=== PATIENT | female | born 1950 | race Caucasian/White ===

== ENCOUNTER 2019-03-21 12:16 | Day surgery (SDC) | payer MEDICARE, MEDICAID ==
[2019-03-21] VITALS (12 sets, daily range): BP systolic 150–187; BP diastolic 70–97
[~2019-03-21] VITALS: Ht 160 cm; Wt 71.9 kg
[~2019-03-21 12:16] MED LIST: ASPI-1265 PO; CALC500T63 PO; CHOL200035 PO; CYCL-394 PO; ESOM40CA PO; FENO135C3 PO; GABA-330 PO; HCTZ25T PO; HYDR28CR14 TP; LANTUS SQ; LIRA0.6P SQ; LISI-600 PO; METH-233 PO; MYL80T PO; OMEG1CAP PO; ROSU10TA2 PO; VITA400T8 PO; ZOF4T PO; [UNRECOGNIZED DRUG - OTHER] PO
[2019-03-21] MEDS ORDERED: diphenhydrAMINE 25mg capsule PO PRN (12:40)
[2019-03-21] MEDS ORDERED: normal saline 1,000 ML IV SCH (12:40)
[2019-03-21 13:29] LABS: BASOPHILS # (AUTO) 0.1 X10'3 (0-0.2); BASOPHILS % (AUTO) 0.8 % (0-1); EOSINOPHILS # (AUTO) 0.3 X10'3 (0-0.9); EOSINOPHILS % (AUTO) 3.8 % (0-6); HEMATOCRIT 28.7 % (35.0-45.0); HEMOGLOBIN 10.3 g/dl (12.0-16.0); LYMPHOCYTES # (AUTO) 2.2 X10'3 (1.1-4.8); LYMPHOCYTES % (AUTO) 27.3 % (21-51); MEAN CORPUSCULAR HEMOGLOBIN 33.7 PG (27.0-31.0); MEAN CORPUSCULAR HGB CONC 35.8 g/dL (33.0-36.5); MEAN CORPUSCULAR VOLUME 94.1 FL (78-98); MEAN PLATELET VOLUME 6.6 FL (7.4-10.4); MONOCYTES # (AUTO) 0.7 X10'3 (0-0.9); MONOCYTES % (AUTO) 8.9 % (2-12); NEUTROPHILS # (AUTO) 4.8 X10'3 (1.8-7.7); NEUTROPHILS % (AUTO) 59.2 % (42-75); PLATELET COUNT 328 X10'3 (140-440); RED BLOOD COUNT 3.05 X10'6 (4.20-5.60); RED CELL DISTRIBUTION WIDTH 13.9 % (11.5-14.5); WHITE BLOOD COUNT 8.1 X10'3 (4.5-11.0)
[2019-03-21 13:44] LABS: ALBUMIN 3.5 G/DL (3.4-5.0); ANION GAP 8 (8-16); BLOOD UREA NITROGEN 32 MG/DL (7-18); BUN/CREATININE RATIO 21.1 (6.6-38.0); CALCIUM 8.7 MG/DL (8.5-10.1); CHLORIDE 107 MMOL/L (99-107); CREATININE 1.52 MG/DL (0.40-0.90); GLUCOSE 85 MG/DL (70-104); MAGNESIUM 1.9 MG/DL (1.5-2.4); POTASSIUM 4.7 MMOL/L (3.5-5.1); SODIUM 139 MMOL/L (135-145); TOTAL CARBON DIOXIDE 23.9 MMOL/L (24-32); eGFR 34 ML/MIN
[2019-03-21] MEDS ORDERED: iohexol 350 MG/ML 50ML vial IV ONE (14:01)
[2019-03-21] MEDS ORDERED: LIDOcaine 1% (10mg/ml)w/preservative injection 20ml MDV ONE (14:01)
[2019-03-21] MEDS ORDERED: iohexol 350MG/ML 100ml bottle IV ONE (14:01)
[2019-03-21] MEDS ORDERED: fentaNYL/PF 50MCG/1 ML 2ML syringe ONE (14:18)
[2019-03-21] MEDS ORDERED: midazolam 2 mg/2 ml injection ONE ×2 (14:18→14:34)
[2019-03-21] MEDS ORDERED: proCHLORperazine 10 MG/2 ml inj ONE (14:18)
[2019-03-21] MEDS ORDERED: CYAN250014 (14:46)
[2019-03-21] MEDS ORDERED: FERR28TA PO (14:46)
[2019-03-21] MEDS ORDERED: OMEP20CA10 PO (14:46)
[2019-03-21] MEDS ORDERED: CHOL500049 PO (14:46)
[2019-03-21] MEDS ORDERED: Fiber Well PO (14:46)
[2019-03-21] MEDS ORDERED: HYDR40TA PO (14:46)
[2019-03-21] MEDS ORDERED: [UNRECOGNIZED DRUG - OTHER] PO (14:46)
[2019-03-21] MEDS ORDERED: DOCU-261 PO (14:46)
[2019-03-21] MEDS ORDERED: NITR0.4T48 SL (14:46)
[2019-03-21] MEDS ORDERED: DIPH-681 PO (14:46)
[2019-03-21] MEDS ORDERED: ZOL50T PO (14:46)
[2019-03-21] MEDS ORDERED: LACT1CAP65 PO (14:46)
[2019-03-21] MEDS ORDERED: VITE1000C PO (14:46)
[2019-03-21] MEDS ORDERED: DIPH-405 PO (14:46)
[2019-03-21] MEDS ORDERED: PSYL1PAC9 PO (14:46)
[2019-03-21] MEDS ORDERED: DICL100G15 TOP (14:46)
[2019-03-21] MEDS ORDERED: iohexol 350 MG/1 ML 200ml bottle ONE (14:50)
[2019-03-21] MEDS ORDERED: heparin 1,000unit/ml 10ml vial 10 ML ONE (14:50)
[2019-03-21] MEDS ORDERED: nitroGLYCERIN-Tridil 50MG/D5W 250 ML IV ONE (14:59)
[2019-03-21] MEDS ORDERED: ticagrelor 90mg tablet ONE (15:08)
== END 2019-03-21 19:30 | disposition home or self-care (01) ==
LOC: SSTAY O 12:16
PROVIDERS: ATTEND Internal Medicine Cardiovascular Disease
DX: I25.118 Atherosclerotic heart disease of native coronary artery with other forms of angina pectoris (principal); E11.51 Type 2 diabetes mellitus with diabetic peripheral angiopathy without gangrene; I10 Essential (primary) hypertension; E78.5 Hyperlipidemia, unspecified; K21.9 Gastro-esophageal reflux disease without esophagitis; E11.40 Type 2 diabetes mellitus with diabetic neuropathy, unspecified; F32.9 Major depressive disorder, single episode, unspecified; Z90.49 Acquired absence of other specified parts of digestive tract; Z90.710 Acquired absence of both cervix and uterus; Z86.73 Personal history of transient ischemic attack (TIA), and cerebral infarction without residual deficits; Z79.899 Other long term (current) drug therapy; Z79.82 Long term (current) use of aspirin; Z79.4 Long term (current) use of insulin; Z98.42 Cataract extraction status, left eye; Z98.41 Cataract extraction status, right eye; Z98.890 Other specified postprocedural states; Z80.9 Family history of malignant neoplasm, unspecified; Z87.891 Personal history of nicotine dependence
CPT/HCPCS: 36415; 80048; 83735; 85025; 85610; 93005; 93458; 99152; 99153; A6257; C1874; C9600; J0780; J1644; J2001; J2250; J3010; J7030; Q0163; Q9967; A4620; C1760; C1769; C1894; J3490

== ENCOUNTER 2019-06-16 13:42 | Emergency (ER) | payer MEDICARE, MEDICAID ==
[~2019-06-16] VITALS: Ht 157.5 cm; Wt 68.7 kg
[~2019-06-16 13:42] MED LIST changes: -CALC500T63 PO; -CHOL200035 PO; +CHOL500049 PO; +CYAN250014; -CYCL-394 PO; +DICL100G15 TOP; +DIPH-405 PO; +DIPH-681 PO; +DOCU-261 PO; -ESOM40CA PO; -FENO135C3 PO; +FERR28TA PO; +Fiber Well PO; -HCTZ25T PO; -HYDR28CR14 TP; +HYDR40TA PO; +LACT1CAP65 PO; -MYL80T PO; +NITR0.4T48 SL; -OMEG1CAP PO; +OMEP20CA11 PO; +PSYL1PAC9 PO; +VITE1000C PO; +ZOL50T PO; +[UNRECOGNIZED DRUG - OTHER] PO; -[UNRECOGNIZED DRUG - OTHER] PO
--- NOTE | 2019-06-16 13:54 | NUR ---
EKG 1348 SB
[2019-06-16 15:56] LABS: BASOPHILS # (AUTO) 0.1 X10'3 (0-0.2); EOSINOPHILS # (AUTO) 0.3 X10'3 (0-0.9); EOSINOPHILS % (AUTO) 3.9 % (0-6); HEMATOCRIT 31.4 % (35.0-45.0); HEMOGLOBIN 10.6 g/dl (12.0-16.0); LYMPHOCYTES # (AUTO) 1.3 X10'3 (1.1-4.8); LYMPHOCYTES % (AUTO) 18.4 % (21-51); MEAN CORPUSCULAR HEMOGLOBIN 32.2 PG (27.0-31.0); MEAN CORPUSCULAR HGB CONC 33.9 g/dL (33.0-36.5); MEAN CORPUSCULAR VOLUME 95.1 FL (78-98); MEAN PLATELET VOLUME 6.7 FL (7.4-10.4); MONOCYTES # (AUTO) 0.6 X10'3 (0-0.9); MONOCYTES % (AUTO) 8.6 % (2-12); NEUTROPHILS # (AUTO) 4.8 X10'3 (1.8-7.7); NEUTROPHILS % (AUTO) 68.1 % (42-75); PLATELET COUNT 324 X10'3 (140-440)
[2019-06-16 16:08] LABS: ALANINE AMINOTRANSFERASE 21 U/L (12-78); ALBUMIN 3.3 G/DL (3.4-5.0); ALBUMIN/GLOBULIN RATIO 0.9 (1.1-1.5); ALKALINE PHOSPHATASE 87 IU/L (46-116); ANION GAP 7 (8-16); BILIRUBIN,TOTAL 0.3 MG/DL (0.1-1.0); BLOOD UREA NITROGEN 34 MG/DL (7-18); BUN/CREATININE RATIO 22.1 (6.6-38.0); CALCIUM 8.7 MG/DL (8.5-10.1); CHLORIDE 103 MMOL/L (99-107); CREATININE 1.54 MG/DL (0.40-0.90); GLUCOSE 106 MG/DL (70-104); POTASSIUM 4.8 MMOL/L (3.5-5.1); SODIUM 135 MMOL/L (135-145); TOTAL CARBON DIOXIDE 24.7 MMOL/L (24-32); TOTAL PROTEIN 6.8 G/DL (6.4-8.2); eGFR 33 ML/MIN
[2019-06-16 16:22] LABS: ASPARTATE AMINO TRANSFERASE 18 U/L (10-37)
--- NOTE | 2019-06-16 17:05 | NUR ---
PT BP 180/78,168/[address] SHEA,NO NEW ORDERS HE SAID ITS EXPECTED .MD WAS AT BEDSID DOING ASSESSMENT , AT BEDSIDE.INFORMED THAT PT USED TO TAKE LISINOPRIL AND NOW ON LABETALOL PT SAID HER BP FLUCTUATE LIKE THIS.
--- NOTE | 2019-06-16 17:06 | NUR ---
dr carrasquillo in room.
[2019-06-16 17:11] LABS: PARTIAL THROMBOPLASTIN TIME 27 SECONDS (22-32)
[2019-06-16 18:31] VITALS: BP 180/84
== END 2019-06-16 19:43 | disposition home or self-care (01) ==
LOC: ER 13:43
DX: M54.2 Cervicalgia (principal); R42 Dizziness and giddiness; E11.9 Type 2 diabetes mellitus without complications; Z79.82 Long term (current) use of aspirin; Z79.01 Long term (current) use of anticoagulants; Z88.5 Allergy status to narcotic agent; Z79.4 Long term (current) use of insulin; Z79.899 Other long term (current) drug therapy
CPT/HCPCS: 36415; 71046; 80053; 84484; 85025; 85610; 85730; 93005; 99284

== ENCOUNTER 2024-03-24 07:36 | Day surgery (SDC) | payer MEDICARE, MEDICAID ==
[~2024-03-24] VITALS: Ht 157.5 cm; Wt 75.0 kg
[~2024-03-24 07:36] MED LIST changes: +ALBU8.5H17 INH; +AMLO5TAB16 PO; -ASPI-1265 PO; +ATOR40TA72 PO; +AZI25OT PO; +BUDE10.22 INH; +CLOP75TA34 PO; -CYAN250014; -DICL100G15 TOP; -DIPH-405 PO; -DIPH-681 PO; -DOCU-261 PO; +DOCU-337 PO; +DOXY25TA58 PO; -Fiber Well PO; -HYDR40TA PO; +LANS30CA56 PO; -LISI-600 PO; +MELA5TAB12 PO; -OMEP20CA11 PO; +ONDA-103 PO; +OXYC1TAB17 PO; -PSYL1PAC9 PO; -ROSU10TA2 PO; +UBIQ100C2 PO; +VALS160T2 PO; -VITA400T8 PO; -ZOF4T PO; -ZOL50T PO; -[UNRECOGNIZED DRUG - OTHER] PO
[2024-03-24 08:07] VITALS: BP 160/69; PULSE 75; RESP 15
[2024-03-24] MEDS ORDERED: ASPI-611 PO (08:10)
[2024-03-24] MEDS ORDERED: PANT40SU2 PO (08:10)
[2024-03-24] MEDS ORDERED: ESCI10TA PO (08:19)
[2024-03-24] MEDS ORDERED: DONE5TAB7 PO (08:20)
[2024-03-24] MEDS ORDERED: LISI20TA28 PO (08:21)
[2024-03-24] MEDS ORDERED: LABE100T8 PO (08:22)
[2024-03-24] MEDS ORDERED: VITD400T PO (08:23)
[2024-03-24] MEDS ORDERED: ASCO500C17 PO (08:24)
[2024-03-24 08:51] LABS: BASOPHILS # (AUTO) 0.1 X10'3 (0-0.2); BASOPHILS % (AUTO) 1.2 % (0-1); EOSINOPHILS # (AUTO) 0.2 X10'3 (0-0.9); EOSINOPHILS % (AUTO) 3.2 % (0-6); HEMATOCRIT 27.9 % (35.0-45.0); HEMOGLOBIN 9.1 g/dl (12.0-16.0); LYMPHOCYTES # (AUTO) 0.8 X10'3 (1.1-4.8); MEAN CORPUSCULAR HEMOGLOBIN 32.8 PG (27.0-31.0); MEAN CORPUSCULAR HGB CONC 32.7 g/dL (33.0-36.5); MEAN CORPUSCULAR VOLUME 100.3 FL (78-98); MEAN PLATELET VOLUME 6.3 FL (7.4-10.4); MONOCYTES # (AUTO) 0.8 X10'3 (0-0.9); MONOCYTES % (AUTO) 13.3 % (2-12); NEUTROPHILS # (AUTO) 4.1 X10'3 (1.8-7.7); NEUTROPHILS % (AUTO) 69.3 % (42-75); PLATELET COUNT 288 X10'3 (140-440); RED BLOOD COUNT 2.79 X10'6 (4.20-5.60); RED CELL DISTRIBUTION WIDTH 17.6 % (11.5-14.5); WHITE BLOOD COUNT 5.9 X10'3 (4.5-11.0)
[2024-03-24] MEDS ORDERED: diphenhydrAMINE 50 mg/ml inj ONE (09:08)
[2024-03-24] MEDS ORDERED: MIDAZolam 1 MG/ML 5ML VIAL ONE (09:08)
[2024-03-24] MEDS ORDERED: fentaNYL/PF 50MCG/1 ML 2ML syringe ONE (09:08)
[2024-03-24 10:12] VITALS: BP 142/64; PULSE 71; RESP 17; O2SAT 97
[2024-03-24 10:22] VITALS: BP 167/66; PULSE 69; RESP 12; O2SAT 100
[2024-03-24 10:32] VITALS: BP 168/75; PULSE 67; RESP 16; O2SAT 100
[2024-03-24 10:42] VITALS: BP 168/72; PULSE 68; RESP 14; O2SAT 100
== END 2024-03-24 10:53 | disposition home or self-care (01) ==
LOC: GI LAB 07:36
PROVIDERS: ATTEND Internal Medicine Gastroenterology
DX: D12.3 Benign neoplasm of transverse colon (principal); D12.2 Benign neoplasm of ascending colon; D50.0 Iron deficiency anemia secondary to blood loss (chronic); K57.30 Diverticulosis of large intestine without perforation or abscess without bleeding; K21.9 Gastro-esophageal reflux disease without esophagitis; I10 Essential (primary) hypertension; J44.9 Chronic obstructive pulmonary disease, unspecified
CPT/HCPCS: 36415; 45380; 45385; 85025; 99153; G0500; J2250; J3010; J7030; Z7512; 99152; A4620; C1889; J1200

== ENCOUNTER 2024-06-28 16:01 | Inpatient (IN) | payer MEDICARE, MEDICAID ==
[~2024-06-28] VITALS: Ht 157.5 cm; Wt 75.5 kg
[~2024-06-28 16:01] MED LIST changes: -AMLO5TAB16 PO; +ASCO500C17 PO; +ASPI-611 PO; -AZI25OT PO; -BUDE10.22 INH; -DOCU-337 PO; +DONE5TAB7 PO; -DOXY25TA58 PO; +ESCI10TA PO; -FERR28TA PO; -GABA-330 PO; +ISOS20TA15 PO; +LABE100T8 PO; -LACT1CAP65 PO; -LANS30CA56 PO; -LANTUS SQ; -LIRA0.6P SQ; +LISI20TA28 PO; -MELA5TAB12 PO; -METH-233 PO; -NITR0.4T48 SL; -ONDA-103 PO; -OXYC1TAB17 PO; +PANT40SU2 PO; +PATI16.8 PO; +PREG50CA PO; -UBIQ100C2 PO; -VALS160T2 PO; +VITD400T PO; -VITE1000C PO
[2024-06-28 17:57] LABS: BASOPHILS # (AUTO) 0.1 X10'3 (0-0.2); BASOPHILS % (AUTO) 0.6 % (0-1); EOSINOPHILS # (AUTO) 0.2 X10'3 (0-0.9); EOSINOPHILS % (AUTO) 2.3 % (0-6); HEMOGLOBIN 13.9 g/dl (12.0-16.0); LYMPHOCYTES # (AUTO) 0.9 X10'3 (1.1-4.8); LYMPHOCYTES % (AUTO) 9.5 % (21-51); MEAN CORPUSCULAR HEMOGLOBIN 31.9 PG (27.0-31.0); MEAN CORPUSCULAR HGB CONC 33.1 g/dL (33.0-36.5); MEAN CORPUSCULAR VOLUME 96.4 FL (78-98); MEAN PLATELET VOLUME 6.7 FL (7.4-10.4); MONOCYTES # (AUTO) 0.8 X10'3 (0-0.9); MONOCYTES % (AUTO) 8.4 % (2-12); NEUTROPHILS # (AUTO) 7.3 X10'3 (1.8-7.7); NEUTROPHILS % (AUTO) 79.2 % (42-75); PLATELET COUNT 299 X10'3 (140-440); RED BLOOD COUNT 4.35 X10'6 (4.20-5.60); RED CELL DISTRIBUTION WIDTH 16.5 % (11.5-14.5); WHITE BLOOD COUNT 9.2 X10'3 (4.5-11.0)
[2024-06-28 18:06] LABS: PROTHROMBIN TIME 10.9 SECONDS (9.0-12.0)
[2024-06-28 18:20] LABS: ALANINE AMINOTRANSFERASE 33 U/L (12-78); ALBUMIN 3.9 G/DL (3.4-5.0); ALBUMIN/GLOBULIN RATIO 1.1 (1.1-1.5); ALKALINE PHOSPHATASE 68 IU/L (46-116); ANION GAP 12 (8-16); ASPARTATE AMINO TRANSFERASE 18 U/L (10-37); BILIRUBIN,TOTAL 0.5 MG/DL (0.1-1.0); BLOOD UREA NITROGEN 31 MG/DL (7-18); BUN/CREATININE RATIO 5.3 (10.0-20.0); CALCIUM 9.1 MG/DL (8.5-10.1); CHLORIDE 93 MMOL/L (99-107); CREATININE 5.87 MG/DL (0.40-0.90); GLUCOSE 117 MG/DL (70-104); LIPASE 66 U/L (16-77); POTASSIUM 4.8 MMOL/L (3.5-5.1); SODIUM 132 MMOL/L (135-145); TOTAL CARBON DIOXIDE 26.8 MMOL/L (24-32); TOTAL PROTEIN 7.4 G/DL (6.4-8.2); eCRCL 7 ML/MIN; eGFR 7 ML/MIN
[2024-06-28] MEDS ORDERED: mag hydrox/Alum hydrox/simeth 30ml oral suspension PO PRN (21:05)
[2024-06-28] MEDS ORDERED: potassium Cl 20 mEq SR tablet PO PRN ×2 (21:05)
[2024-06-28] MEDS ORDERED: magnesium hydroxide 30ml (MOM) UD suspension PO PRN (21:05)
[2024-06-28] MEDS ORDERED: albuterol 2.5 MG/3 ML nebule NEB PRN (22:20)
[2024-06-29] VITALS (25 sets, daily range): BP systolic 84–158; BP diastolic 27–61; PULSE 77–98; RESP 16–21; TEMP 96.4–97.9; O2SAT 93–100
[2024-06-29 04:39] LABS: BASOPHILS # (AUTO) 0.1 X10'3 (0-0.2); BASOPHILS % (AUTO) 0.5 % (0-1); EOSINOPHILS # (AUTO) 0.2 X10'3 (0-0.9); EOSINOPHILS % (AUTO) 1.3 % (0-6); HEMATOCRIT 35.2 % (35.0-45.0); HEMOGLOBIN 11.3 g/dl (12.0-16.0); LYMPHOCYTES # (AUTO) 1.3 X10'3 (1.1-4.8); LYMPHOCYTES % (AUTO) 10.1 % (21-51); MEAN CORPUSCULAR HGB CONC 32.2 g/dL (33.0-36.5); MEAN CORPUSCULAR VOLUME 96.2 FL (78-98); MEAN PLATELET VOLUME 6.4 FL (7.4-10.4); MONOCYTES % (AUTO) 7.9 % (2-12); NEUTROPHILS # (AUTO) 9.9 X10'3 (1.8-7.7); NEUTROPHILS % (AUTO) 80.2 % (42-75); PLATELET COUNT 288 X10'3 (140-440); RED BLOOD COUNT 3.65 X10'6 (4.20-5.60); RED CELL DISTRIBUTION WIDTH 16.6 % (11.5-14.5); WHITE BLOOD COUNT 12.4 X10'3 (4.5-11.0)
[2024-06-29 04:42] LABS: ABG BASE EXCESS -8.1 mmol/L (-2.0-2.0); ABG HCO3 17.5 mmol/L (22.0-26.0); ABG OXYGEN SATURATION 94.2 % (94-97); ABG PCO2 (T) 35.9 mmHg (32.0-45.0); ABG PH (T) 7.305 (7.350-7.450); ALLEN'S TEST Modified; FCOHb 1.1 % (0.0-3.9); FHHb 5.7 % (0.0-5.0); FMetHb 0.3 % (0.0-1.5); FO2Hb 92.9 % (94-97); MODE ROOM AIR; PATIENT TEMPERATURE 36.6; TOTAL HEMOGLOBIN 12.1 G/dl (12.0-16.0)
[2024-06-29 04:52] LABS: APTT 25 SECONDS (22-32); PROTHROMBIN TIME 11.1 SECONDS (9.0-12.0)
[2024-06-29 04:56] LABS: ALANINE AMINOTRANSFERASE 27 U/L (12-78); ALBUMIN 3.3 G/DL (3.4-5.0); ALBUMIN/GLOBULIN RATIO 1.1 (1.1-1.5); ALKALINE PHOSPHATASE 55 IU/L (46-116); ANION GAP 14 (8-16); ASPARTATE AMINO TRANSFERASE 10 U/L (10-37); BILIRUBIN,TOTAL 0.3 MG/DL (0.1-1.0); BLOOD UREA NITROGEN 44 MG/DL (7-18); BUN/CREATININE RATIO 6.6 (10.0-20.0); CALCIUM 8.4 MG/DL (8.5-10.1); CHLORIDE 95 MMOL/L (99-107); GLUCOSE 150 MG/DL (70-104); MAGNESIUM 1.6 MG/DL (1.5-2.4); PHOSPHORUS 6.4 MG/DL (2.3-4.5); POTASSIUM 5.2 MMOL/L (3.5-5.1); SODIUM 132 MMOL/L (135-145); TOTAL CARBON DIOXIDE 23.2 MMOL/L (24-32); TOTAL PROTEIN 6.2 G/DL (6.4-8.2); eCRCL 6 ML/MIN; eGFR 6 ML/MIN
[2024-06-29 05:00] LABS: HEMOGLOBIN A1C 5.9 % (4.5-6.2)
[2024-06-29] MEDS: ondansetron/PF 4mg/2ml inj IV PRN (06:04)
[2024-06-29] MEDS: normal saline 250ml IV soln 250 ML IV ONE (06:38)
[2024-06-29] MEDS: desmopressin inj. 4 MCG in normal saline 100ml IV soln 100 ML IV STA (07:15)
[2024-06-29 07:42] LABS: HEMOGLOBIN 10.3 g/dl (12.0-16.0); MEAN CORPUSCULAR HEMOGLOBIN 31.4 PG (27.0-31.0); MEAN CORPUSCULAR HGB CONC 32.2 g/dL (33.0-36.5); MEAN CORPUSCULAR VOLUME 97.5 FL (78-98); MEAN PLATELET VOLUME 6.9 FL (7.4-10.4); PLATELET COUNT 248 X10'3 (140-440); RED BLOOD COUNT 3.28 X10'6 (4.20-5.60); RED CELL DISTRIBUTION WIDTH 16.7 % (11.5-14.5); WHITE BLOOD COUNT 10.7 X10'3 (4.5-11.0)
[2024-06-29] MEDS: lisinopril 10 MG tablet PO SCH (08:00)
[2024-06-29] MEDS: atorvastatin 20mg tablet PO SCH (08:00)
[2024-06-29] MEDS: clopidogrel 75mg tablet PO SCH (08:00)
[2024-06-29] MEDS: docusate sod 100mg capsule PO SCH (08:00)
[2024-06-29] MEDS ORDERED: dextrose 50%-water 50ml dispensing syringe IV PRN (08:05)
[2024-06-29] MEDS ORDERED: glucagon, human recombinant 1mg kit SUBCUT PRN (08:05)
[2024-06-29] MEDS ORDERED: DEXTROSE 15 GM of carb/4 tabs (each vial/BOTTLE has 4 tablets) PO PRN (08:05)
[2024-06-29] MEDS: dextrose 50%-water 50ml dispensing syringe IV PRN (08:16)
[2024-06-29] MEDS ORDERED: normal saline 1000ml 250 ML IV PRN (09:05)
[2024-06-29] MEDS ORDERED: normal saline 1000ml 100 ML IV PRN (09:05)
[2024-06-29] MEDS: acetaminophen 325mg tablet PO PRN (10:20)
[2024-06-29] MEDS: LIDOcaine 5% patch TP SCH (12:00)
[2024-06-29 13:30] LABS: HEMATOCRIT 29.8 % (35.0-45.0); HEMOGLOBIN 9.7 g/dl (12.0-16.0); MEAN CORPUSCULAR HEMOGLOBIN 31.4 PG (27.0-31.0); MEAN CORPUSCULAR HGB CONC 32.6 g/dL (33.0-36.5); MEAN CORPUSCULAR VOLUME 96.4 FL (78-98); MEAN PLATELET VOLUME 6.8 FL (7.4-10.4); PLATELET COUNT 237 X10'3 (140-440); RED BLOOD COUNT 3.09 X10'6 (4.20-5.60); RED CELL DISTRIBUTION WIDTH 16.4 % (11.5-14.5); WHITE BLOOD COUNT 8.4 X10'3 (4.5-11.0)
[2024-06-29] MEDS: HYDROcodone/acetaminophen 5mg/325mg tablet PO PRN (13:35)
[2024-06-29] MEDS: heparin 1,000 units/ml 10ml inj HE ONE ×2 (14:24)
[2024-06-29 16:07] LABS: HEMATOCRIT 28.2 % (35.0-45.0); HEMOGLOBIN 9.2 g/dl (12.0-16.0); MEAN CORPUSCULAR HEMOGLOBIN 31.3 PG (27.0-31.0); MEAN CORPUSCULAR HGB CONC 32.7 g/dL (33.0-36.5); MEAN CORPUSCULAR VOLUME 95.6 FL (78-98); MEAN PLATELET VOLUME 6.5 FL (7.4-10.4); PLATELET COUNT 214 X10'3 (140-440); RED BLOOD COUNT 2.95 X10'6 (4.20-5.60); RED CELL DISTRIBUTION WIDTH 16.7 % (11.5-14.5); WHITE BLOOD COUNT 7.6 X10'3 (4.5-11.0)
[2024-06-29] MEDS: ringers solution, lacted 1,000 ML IV SCH (16:36)
[2024-06-29] MEDS ORDERED: acetaminophen 325mg tablet PO PRN (21:10)
[2024-06-29 23:05] LABS: HEMATOCRIT 27.7 % (35.0-45.0); HEMOGLOBIN 8.9 g/dl (12.0-16.0); MEAN CORPUSCULAR HEMOGLOBIN 31.1 PG (27.0-31.0); MEAN CORPUSCULAR HGB CONC 32.4 g/dL (33.0-36.5); MEAN PLATELET VOLUME 6.6 FL (7.4-10.4); PLATELET COUNT 219 X10'3 (140-440); RED BLOOD COUNT 2.88 X10'6 (4.20-5.60); RED CELL DISTRIBUTION WIDTH 16.7 % (11.5-14.5); WHITE BLOOD COUNT 8.4 X10'3 (4.5-11.0)
[2024-06-30] VITALS (8 sets, daily range): BP systolic 119–149; BP diastolic 35–51; PULSE 64–95; RESP 16–19; TEMP 97–98.3; O2SAT 88–98
[2024-06-30 05:13] LABS: BASOPHILS # (AUTO) 0.1 X10'3 (0-0.2); BASOPHILS % (AUTO) 0.7 % (0-1); EOSINOPHILS # (AUTO) 0.2 X10'3 (0-0.9); EOSINOPHILS % (AUTO) 2.6 % (0-6); HEMOGLOBIN 8.5 g/dl (12.0-16.0); LYMPHOCYTES # (AUTO) 0.8 X10'3 (1.1-4.8); LYMPHOCYTES % (AUTO) 9.1 % (21-51); MEAN CORPUSCULAR HEMOGLOBIN 31.3 PG (27.0-31.0); MEAN CORPUSCULAR HGB CONC 32.7 g/dL (33.0-36.5); MEAN CORPUSCULAR VOLUME 95.7 FL (78-98); MONOCYTES # (AUTO) 0.9 X10'3 (0-0.9); MONOCYTES % (AUTO) 10.1 % (2-12); NEUTROPHILS # (AUTO) 6.7 X10'3 (1.8-7.7); NEUTROPHILS % (AUTO) 77.5 % (42-75); PLATELET COUNT 230 X10'3 (140-440); RED BLOOD COUNT 2.72 X10'6 (4.20-5.60); RED CELL DISTRIBUTION WIDTH 16.5 % (11.5-14.5); WHITE BLOOD COUNT 8.6 X10'3 (4.5-11.0)
[2024-06-30 05:26] LABS: ALANINE AMINOTRANSFERASE 24 U/L (12-78); ALKALINE PHOSPHATASE 52 IU/L (46-116); ANION GAP 8 (8-16); ASPARTATE AMINO TRANSFERASE 15 U/L (10-37); BILIRUBIN,TOTAL 0.3 MG/DL (0.1-1.0); BLOOD UREA NITROGEN 19 MG/DL (7-18); BUN/CREATININE RATIO 4.5 (10.0-20.0); CHLORIDE 100 MMOL/L (99-107); CREATININE 4.25 MG/DL (0.40-0.90); GLUCOSE 95 MG/DL (70-104); MAGNESIUM 1.4 MG/DL (1.5-2.4); PHOSPHORUS 4.6 MG/DL (2.3-4.5); POTASSIUM 4.1 MMOL/L (3.5-5.1); SODIUM 137 MMOL/L (135-145); TOTAL CARBON DIOXIDE 29.3 MMOL/L (24-32); TOTAL PROTEIN 6.1 G/DL (6.4-8.2); eCRCL 9 ML/MIN; eGFR 10 ML/MIN
[2024-06-30] MEDS: PERFLUTREN PROTEIN-A MICROSPHR (Optison) 0.22 MG/ML 3ML VIAL IV ONE (06:04)
[2024-06-30] MEDS: magnesium Cl slow-release 64mg tablet PO PRN (08:19)
[2024-06-30] MEDS: pregabalin 25mg capsule PO SCH (08:20)
[2024-06-30] MEDS: pantoprazole 40mg Tablet.DR PO SCH (08:29)
[2024-06-30] MEDS: ESCITALOPRAM 10 mg tablet 10 MG TABLET PO SCH (08:32)
[2024-06-30 10:02] LABS: HEMATOCRIT 25.7 % (35.0-45.0); HEMOGLOBIN 8.4 g/dl (12.0-16.0); MEAN CORPUSCULAR HEMOGLOBIN 31.5 PG (27.0-31.0); MEAN CORPUSCULAR HGB CONC 32.5 g/dL (33.0-36.5); MEAN CORPUSCULAR VOLUME 96.7 FL (78-98); MEAN PLATELET VOLUME 6.7 FL (7.4-10.4); PLATELET COUNT 211 X10'3 (140-440); RED BLOOD COUNT 2.66 X10'6 (4.20-5.60); RED CELL DISTRIBUTION WIDTH 16.8 % (11.5-14.5); WHITE BLOOD COUNT 9.8 X10'3 (4.5-11.0)
[2024-06-30] MEDS ORDERED: EPOETIN ALFA-EPBX 20,000 UNIT/ML 1 ML MDV IV SCH (16:30)
[2024-06-30] MEDS ORDERED: EPOETIN ALFA-EPBX 20,000 UNIT/ML 1 ML MDV IV ONE ×3 (16:30→16:55)
[2024-06-30] MEDS ORDERED: normal saline 1000ml 100 ML IV PRN (16:35)
[2024-06-30 17:02] LABS: HEMATOCRIT 25.3 % (35.0-45.0); HEMOGLOBIN 8.2 g/dl (12.0-16.0); MEAN CORPUSCULAR HEMOGLOBIN 31.2 PG (27.0-31.0); MEAN CORPUSCULAR HGB CONC 32.3 g/dL (33.0-36.5); MEAN CORPUSCULAR VOLUME 96.5 FL (78-98); MEAN PLATELET VOLUME 6.6 FL (7.4-10.4); PLATELET COUNT 218 X10'3 (140-440); RED BLOOD COUNT 2.62 X10'6 (4.20-5.60); RED CELL DISTRIBUTION WIDTH 16.4 % (11.5-14.5); WHITE BLOOD COUNT 10.2 X10'3 (4.5-11.0)
[2024-06-30] MEDS: EPOETIN ALFA-EPBX 20,000 UNIT/ML 1 ML MDV SQ ONE (22:57)
[2024-06-30] MEDS: donepezil 5mg tablet PO SCH (22:58)
[2024-06-30 23:01] LABS: HEMATOCRIT 26.6 % (35.0-45.0); HEMOGLOBIN 8.5 g/dl (12.0-16.0); MEAN CORPUSCULAR HGB CONC 31.9 g/dL (33.0-36.5); MEAN CORPUSCULAR VOLUME 97.3 FL (78-98); MEAN PLATELET VOLUME 6.9 FL (7.4-10.4); PLATELET COUNT 220 X10'3 (140-440); RED BLOOD COUNT 2.73 X10'6 (4.20-5.60); RED CELL DISTRIBUTION WIDTH 16.4 % (11.5-14.5); WHITE BLOOD COUNT 10.5 X10'3 (4.5-11.0)
[2024-07-01] VITALS (12 sets, daily range): BP systolic 115–181; BP diastolic 37–73; PULSE 74–93; RESP 14–26; TEMP 97.2–98.2; O2SAT 89–99
[2024-07-01] MEDS: DEXTROSE 15 GM of carb/4 tabs (each vial/BOTTLE has 4 tablets) PO PRN (01:59)
[2024-07-01] MEDS: dextrose 5%-water 1,000 ML IV SCH (02:04)
[2024-07-01 07:49] LABS: BASOPHILS % (AUTO) 0.4 % (0-1); EOSINOPHILS # (AUTO) 0.2 X10'3 (0-0.9); EOSINOPHILS % (AUTO) 2.9 % (0-6); HEMATOCRIT 25.6 % (35.0-45.0); HEMOGLOBIN 8.3 g/dl (12.0-16.0); LYMPHOCYTES # (AUTO) 0.7 X10'3 (1.1-4.8); LYMPHOCYTES % (AUTO) 8.9 % (21-51); MEAN CORPUSCULAR HEMOGLOBIN 31.5 PG (27.0-31.0); MEAN CORPUSCULAR HGB CONC 32.4 g/dL (33.0-36.5); MEAN CORPUSCULAR VOLUME 97.3 FL (78-98); MEAN PLATELET VOLUME 6.9 FL (7.4-10.4); MONOCYTES # (AUTO) 0.8 X10'3 (0-0.9); MONOCYTES % (AUTO) 10.5 % (2-12); NEUTROPHILS # (AUTO) 6.1 X10'3 (1.8-7.7); NEUTROPHILS % (AUTO) 77.3 % (42-75); PLATELET COUNT 228 X10'3 (140-440); RED BLOOD COUNT 2.63 X10'6 (4.20-5.60); RED CELL DISTRIBUTION WIDTH 16.6 % (11.5-14.5); WHITE BLOOD COUNT 7.9 X10'3 (4.5-11.0)
[2024-07-01] MEDS ORDERED: EPOETIN ALFA-EPBX 20,000 UNIT/ML 1 ML MDV IV ONE (08:00)
[2024-07-01 08:18] LABS: ALANINE AMINOTRANSFERASE 21 U/L (12-78); ALBUMIN 2.9 G/DL (3.4-5.0); ALBUMIN/GLOBULIN RATIO 0.9 (1.1-1.5); ALKALINE PHOSPHATASE 56 IU/L (46-116); ANION GAP 11 (8-16); ASPARTATE AMINO TRANSFERASE 13 U/L (10-37); BILIRUBIN,TOTAL 0.3 MG/DL (0.1-1.0); BLOOD UREA NITROGEN 29 MG/DL (7-18); BUN/CREATININE RATIO 4.9 (10.0-20.0); CALCIUM 8.1 MG/DL (8.5-10.1); CHLORIDE 97 MMOL/L (99-107); CREATININE 5.92 MG/DL (0.40-0.90); GLUCOSE 94 MG/DL (70-104); MAGNESIUM 1.7 MG/DL (1.5-2.4); PHOSPHORUS 6.1 MG/DL (2.3-4.5); POTASSIUM 4.1 MMOL/L (3.5-5.1); SODIUM 132 MMOL/L (135-145); TOTAL PROTEIN 6.1 G/DL (6.4-8.2); eCRCL 6 ML/MIN; eGFR 7 ML/MIN
[2024-07-01] MEDS: EPOETIN ALFA-EPBX 20,000 UNIT/ML 1 ML MDV IV ONE (08:50)
[2024-07-01] MEDS: proCHLORperazine 10 MG/2 ml inj IV PRN (15:04)
[2024-07-01 16:33] LABS: HEMATOCRIT 24.4 % (35.0-45.0); HEMOGLOBIN 7.9 g/dl (12.0-16.0); MEAN CORPUSCULAR HEMOGLOBIN 31.1 PG (27.0-31.0); MEAN CORPUSCULAR HGB CONC 32.3 g/dL (33.0-36.5); MEAN CORPUSCULAR VOLUME 96.3 FL (78-98); MEAN PLATELET VOLUME 6.7 FL (7.4-10.4); PLATELET COUNT 200 X10'3 (140-440); RED BLOOD COUNT 2.53 X10'6 (4.20-5.60); RED CELL DISTRIBUTION WIDTH 16.2 % (11.5-14.5); WHITE BLOOD COUNT 8.8 X10'3 (4.5-11.0)
[2024-07-01] MEDS: sodium ferric gluc complex inj 125 MG in normal saline 100ml IV soln 100 ML IV SCH (18:54)
[2024-07-02] VITALS (12 sets, daily range): BP systolic 113–162; BP diastolic 40–69; PULSE 72–102; RESP 12–19; TEMP 97–98.9; O2SAT 94–99
[2024-07-02 07:19] LABS: BASOPHILS % (AUTO) 0.5 % (0-1); EOSINOPHILS # (AUTO) 0.3 X10'3 (0-0.9); EOSINOPHILS % (AUTO) 4.6 % (0-6); HEMATOCRIT 24.1 % (35.0-45.0); HEMOGLOBIN 7.7 g/dl (12.0-16.0); LYMPHOCYTES # (AUTO) 0.8 X10'3 (1.1-4.8); LYMPHOCYTES % (AUTO) 10.8 % (21-51); MEAN CORPUSCULAR HEMOGLOBIN 30.7 PG (27.0-31.0); MEAN CORPUSCULAR HGB CONC 31.7 g/dL (33.0-36.5); MEAN CORPUSCULAR VOLUME 96.8 FL (78-98); MONOCYTES % (AUTO) 13.3 % (2-12); NEUTROPHILS # (AUTO) 5.1 X10'3 (1.8-7.7); NEUTROPHILS % (AUTO) 70.8 % (42-75); PLATELET COUNT 229 X10'3 (140-440); RED BLOOD COUNT 2.49 X10'6 (4.20-5.60); RED CELL DISTRIBUTION WIDTH 16.4 % (11.5-14.5); WHITE BLOOD COUNT 7.2 X10'3 (4.5-11.0)
[2024-07-02 07:21] LABS: ALANINE AMINOTRANSFERASE 20 U/L (12-78); ALBUMIN 2.7 G/DL (3.4-5.0); ALBUMIN/GLOBULIN RATIO 0.8 (1.1-1.5); ALKALINE PHOSPHATASE 56 IU/L (46-116); ANION GAP 8 (8-16); ASPARTATE AMINO TRANSFERASE 12 U/L (10-37); BILIRUBIN,TOTAL 0.2 MG/DL (0.1-1.0); BLOOD UREA NITROGEN 16 MG/DL (7-18); BUN/CREATININE RATIO 3.6 (10.0-20.0); CALCIUM 7.6 MG/DL (8.5-10.1); CHLORIDE 100 MMOL/L (99-107); CREATININE 4.43 MG/DL (0.40-0.90); GLUCOSE 106 MG/DL (70-104); MAGNESIUM 1.4 MG/DL (1.5-2.4); PHOSPHORUS 4.9 MG/DL (2.3-4.5); POTASSIUM 3.5 MMOL/L (3.5-5.1); SODIUM 135 MMOL/L (135-145); TOTAL CARBON DIOXIDE 27.4 MMOL/L (24-32); TOTAL PROTEIN 6.1 G/DL (6.4-8.2); eCRCL 9 ML/MIN; eGFR 10 ML/MIN
[2024-07-02 08:25] LABS: HBSAG SCREEN Negative (Negative)
[2024-07-02] MEDS: lactulose 20gm/30ml cup PO SCH (14:13)
[2024-07-02 19:48] LABS: HEMATOCRIT 28.2 % (35.0-45.0); HEMOGLOBIN 9.3 g/dl (12.0-16.0); MEAN CORPUSCULAR HGB CONC 32.8 g/dL (33.0-36.5); MEAN CORPUSCULAR VOLUME 94.7 FL (78-98); MEAN PLATELET VOLUME 6.9 FL (7.4-10.4); PLATELET COUNT 239 X10'3 (140-440); RED BLOOD COUNT 2.98 X10'6 (4.20-5.60); RED CELL DISTRIBUTION WIDTH 15.8 % (11.5-14.5); WHITE BLOOD COUNT 9.7 X10'3 (4.5-11.0)
[2024-07-03 02:00] VITALS: BP 134/52; PULSE 92; RESP 18; TEMP 99.7; O2SAT 90
[2024-07-03 07:00] VITALS: BP 151/55; PULSE 88; RESP 16; TEMP 98.4; O2SAT 92
[2024-07-03 07:17] LABS: BASOPHILS # (AUTO) 0.1 X10'3 (0-0.2); BASOPHILS % (AUTO) 1.1 % (0-1); EOSINOPHILS # (AUTO) 0.3 X10'3 (0-0.9); EOSINOPHILS % (AUTO) 3.4 % (0-6); HEMATOCRIT 28.3 % (35.0-45.0); HEMOGLOBIN 9.1 g/dl (12.0-16.0); LYMPHOCYTES # (AUTO) 0.9 X10'3 (1.1-4.8); LYMPHOCYTES % (AUTO) 11.6 % (21-51); MEAN CORPUSCULAR HEMOGLOBIN 31.4 PG (27.0-31.0); MEAN PLATELET VOLUME 7.2 FL (7.4-10.4); MONOCYTES % (AUTO) 12.4 % (2-12); NEUTROPHILS # (AUTO) 5.7 X10'3 (1.8-7.7); NEUTROPHILS % (AUTO) 71.5 % (42-75); PLATELET COUNT 229 X10'3 (140-440); RED BLOOD COUNT 2.89 X10'6 (4.20-5.60); RED CELL DISTRIBUTION WIDTH 16.1 % (11.5-14.5); WHITE BLOOD COUNT 7.9 X10'3 (4.5-11.0)
[2024-07-03 07:36] LABS: ALANINE AMINOTRANSFERASE 15 U/L (12-78); ALBUMIN 2.6 G/DL (3.4-5.0); ALBUMIN/GLOBULIN RATIO 0.7 (1.1-1.5); ALKALINE PHOSPHATASE 56 IU/L (46-116); ANION GAP 12 (8-16); ASPARTATE AMINO TRANSFERASE 12 U/L (10-37); BILIRUBIN,TOTAL 0.2 MG/DL (0.1-1.0); BLOOD UREA NITROGEN 28 MG/DL (7-18); BUN/CREATININE RATIO 4.6 (10.0-20.0); CALCIUM 7.6 MG/DL (8.5-10.1); CHLORIDE 100 MMOL/L (99-107); CREATININE 6.08 MG/DL (0.40-0.90); GLUCOSE 126 MG/DL (70-104); MAGNESIUM 1.5 MG/DL (1.5-2.4); PHOSPHORUS 5.3 MG/DL (2.3-4.5); POTASSIUM 3.6 MMOL/L (3.5-5.1); SODIUM 134 MMOL/L (135-145); TOTAL CARBON DIOXIDE 22.3 MMOL/L (24-32); TOTAL PROTEIN 6.1 G/DL (6.4-8.2); eCRCL 6 ML/MIN; eGFR 7 ML/MIN
[2024-07-03 11:00] VITALS: BP 146/49; PULSE 88; RESP 16; TEMP 98.4; O2SAT 91
== END 2024-07-03 15:31 | disposition home health service (06) | DRG 919 ==
LOC: ER 16:02 → ED HOLD 21:05 → SUR 3N 06-29 01:15 → OBSVTOIN 06-29 04:36 → PCU 3S 06-29 09:05
PROVIDERS: ADMIT Internal Medicine Critical Care Medicine; ATTEND Family Medicine
PROC: 30233R1 Transfusion of Nonautologous Platelets into Peripheral Vein, Percutaneous Approach (ICD-10-PCS; principal; 2024-06-29)
PROC: 05HF33Z Insertion of Infusion Device into Left Cephalic Vein, Percutaneous Approach (ICD-10-PCS; 2024-06-29)
PROC: 5A1D70Z Performance of Urinary Filtration, Intermittent, Less than 6 Hours Per Day (ICD-10-PCS; 2024-06-29)
PROC: 0DBK8ZZ Excision of Ascending Colon, Via Natural or Artificial Opening Endoscopic (ICD-10-PCS; 2024-06-29)
PROC: 5A1D70Z Performance of Urinary Filtration, Intermittent, Less than 6 Hours Per Day (ICD-10-PCS; 2024-07-01)
PROC: 30233N1 Transfusion of Nonautologous Red Blood Cells into Peripheral Vein, Percutaneous Approach (ICD-10-PCS; 2024-07-02)
DX: K91.840 Postprocedural hemorrhage of a digestive system organ or structure following a digestive system procedure (principal); N18.6 End stage renal disease; R57.8 Other shock; I12.0 Hypertensive chronic kidney disease with stage 5 chronic kidney disease or end stage renal disease; D62 Acute posthemorrhagic anemia; D12.6 Benign neoplasm of colon, unspecified; E11.22 Type 2 diabetes mellitus with diabetic chronic kidney disease; E11.42 Type 2 diabetes mellitus with diabetic polyneuropathy; I25.10 Atherosclerotic heart disease of native coronary artery without angina pectoris; Y83.8 Other surgical procedures as the cause of abnormal reaction of the patient, or of later complication, without mention of misadventure at the time of the procedure; Y82.8 Other medical devices associated with adverse incidents; E11.649 Type 2 diabetes mellitus with hypoglycemia without coma; J44.9 Chronic obstructive pulmonary disease, unspecified; Z88.5 Allergy status to narcotic agent; Z88.8 Allergy status to other drugs, medicaments and biological substances; Z79.82 Long term (current) use of aspirin; Z79.899 Other long term (current) drug therapy; Z99.2 Dependence on renal dialysis; Z87.891 Personal history of nicotine dependence; Y92.89 Other specified places as the place of occurrence of the external cause
CPT/HCPCS: 36410; 36415; 36430; 36600; 45385; 71045; 74018; 74176; 76937; 80053; 82803; 82948; 83036; 83605; 83690; 83735; 84100; 85018; 85025; 85027; 85610; 85730; 86885; 86900; 86901; 86920; 87040; 87081; 87340; 88305; 93005; 93306; 97110; 97116; 97162; 99285; A4615; A4620; A6250; A6449; C1751; C1889; E1594; G0257; G0378; J0780; J1644; J2250; J2405; J2597; J2704; J2916; J3010; J3490; J7030; J7040; J7050; J7070; J7120; P9016; P9035; Q4081

== ENCOUNTER 2024-12-21 06:01 | Day surgery (SDC) | payer MEDICARE, MEDICAID ==
[~2024-12-21] VITALS: Ht 157.5 cm; Wt 64.0 kg
[~2024-12-21 06:01] MED LIST changes: +ACET325T55 PO; +ALPR-624 PO; -ASPI-611 PO; +BUSP5TAB3 PO; -CLOP75TA34 PO; +GUAI100L97 PO; +LIDO1ADH78 TOP; +LOPE2CAP14 PO; +MELA3CAP2 PO; -PATI16.8 PO; +PHO667C PO; +ZINC57OI3 TOP; +[UNRECOGNIZED DRUG - CODE]; +[UNRECOGNIZED DRUG - CODE] PO; +heparin SQ
[2024-12-21 06:43] VITALS: BP 134/60; PULSE 81; RESP 22
[2024-12-21] MEDS ORDERED: LIDOcaine 2% Viscous 15ml cup ONE (06:55)
[2024-12-21] MEDS ORDERED: fentaNYL/PF 50MCG/1 ML 2ML syringe ONE (07:55)
[2024-12-21] MEDS ORDERED: MIDAZolam 1 MG/ML 5ML VIAL ONE (07:56)
[2024-12-21] MEDS ORDERED: simethicone 40mg/0.6ml oral drops 30ml ONE (07:57)
[2024-12-21 08:20] VITALS: BP 138/64; PULSE 79; RESP 17; O2SAT 93
[2024-12-21 08:30] VITALS: BP 119/56; PULSE 72; RESP 17; O2SAT 98
[2024-12-21 08:40] VITALS: BP 126/52; PULSE 77; RESP 17; O2SAT 97
[2024-12-21 08:50] VITALS: BP 128/51; PULSE 75; RESP 14; O2SAT 99
[2024-12-21 09:00] VITALS: BP 128/51; PULSE 75; RESP 17; O2SAT 99
== END 2024-12-21 09:00 | disposition home or self-care (01) ==
LOC: GI LAB 06:01
PROVIDERS: ATTEND Internal Medicine Gastroenterology
DX: D50.0 Iron deficiency anemia secondary to blood loss (chronic) (principal); K44.9 Diaphragmatic hernia without obstruction or gangrene; K31.89 Other diseases of stomach and duodenum; R19.5 Other fecal abnormalities
CPT/HCPCS: 43239; A4620; G0500; J2250; J3010; J7030; Z7512; 99152

== ENCOUNTER 2025-05-30 11:11 | Day surgery (SDC) | payer MEDICARE, MEDICAID ==
[~2025-05-30] VITALS: Ht 157.5 cm; Wt 76.3 kg
[2025-05-30] VITALS (8 sets, daily range): BP systolic 127–165; BP diastolic 52–68; PULSE 72–75; RESP 11–21; O2SAT 97–99
[~2025-05-30 11:11] MED LIST changes: -BUSP5TAB3 PO; -DONE5TAB7 PO; -GUAI100L97 PO; -ISOS20TA15 PO; -MELA3CAP2 PO; +POTA20PA40 PO; -VITD400T PO; -[UNRECOGNIZED DRUG - CODE] PO; -heparin SQ
[2025-05-30] MEDS ORDERED: propofol inj 20 ML IV ONE (12:26)
== END 2025-05-30 13:43 | disposition home or self-care (01) ==
LOC: GI LAB 11:11
PROVIDERS: ATTEND Internal Medicine Gastroenterology
DX: K92.1 Melena (principal); K57.30 Diverticulosis of large intestine without perforation or abscess without bleeding; I25.10 Atherosclerotic heart disease of native coronary artery without angina pectoris; I12.0 Hypertensive chronic kidney disease with stage 5 chronic kidney disease or end stage renal disease; N18.6 End stage renal disease; F03.90 Unspecified dementia, unspecified severity, without behavioral disturbance, psychotic disturbance, mood disturbance, and anxiety
CPT/HCPCS: 45378; C1889; J2704; J7030; Z7512